=== PATIENT | female | born 1975 | race African-American/Black ===

== ENCOUNTER 2019-05-05 00:06 | Emergency (ER) | payer OTHER, SELFPAY ==
[~2019-05-05] VITALS: Ht 167.6 cm; Wt 88.5 kg
[~2019-05-05 00:06] MED LIST: NKM; NORCO 5-325 TA1 EACH ORAL
[2019-05-05 00:15] VITALS: BP 132/85
--- NOTE | 2019-05-05 00:20 | NUR ---
ED Nurse Note: patient walked in from home d/t neck pain 12/04. patient stated experiencing flu like symptoms for the last few days. patient aao x 4 and ambulatory. patient placed on tosser. no acute distress noted.
--- NOTE | 2019-05-05 00:21 | NUR ---
ED Nurse Note: ERMD at bedside
--- NOTE | 2019-05-05 00:27 | Emergency Room Report ---
History of Present Illness General Chief Complaint: Neck Pain Source: Patient Present Illness HPI Patient presents with complaints of general weakness low-grade fever Patient reports that she felt like she had flu symptoms for the past few days starting on Sunday Earlier today started having increased stiffness to her neck and this was concerning for her and came to the ER Denies any photophobia denies any chest pain or shortness of breath patient has a mild sore throat denies any change in her voice Denies any abdominal pain she feels that the discomfort is in the upper part of the neck bilaterally Allergies: Coded Allergies: No Known Allergies (Unverified , 03/08/12) Patient History Past Medical History: see triage record Now: No Reviewed Nursing Documentation: PMH: Agreed; PSxH: Agreed Nursing Documentation-PMH Past Medical History: No Stated History Review of Systems All Other Systems: negative except mentioned in HPI Physical Exam Vital Signs Date Time Temp Pulse Resp B/P (MAP) Pulse Ox O2 Delivery O2 Flow Rate FiO2 05/05/19 00:11 98.2 107 18 138/92 (107) 98 Room Air Sp02 EP Interpretation: reviewed, normal General Appearance: well appearing, no apparent distress Head: normocephalic, atraumatic Eyes: bilateral eye PERRL, bilateral eye EOMI ENT: hearing grossly normal, normal pharynx, TMs + canals normal, uvula midline Neck: full range of motion, supple, no meningismus - Patient is shaking her head up and down to answer yes and no and from side to side without any signs of meningismus reproduced she does subjectively feel, more spasming and stiffness bilaterally however, no bony tend Respiratory: lungs clear, normal breath sounds, no rhonchi, no respiratory distress, no retraction, no accessory muscle use Cardiovascular #1: normal peripheral pulses, regular rate, rhythm, no edema, no gallop, no JVD, no murmur Gastrointestinal: normal bowel sounds, non tender, soft, no mass, no organomegaly, non-distended, no guarding, no hernia, no pulsatile mass, no rebound Musculoskeletal: normal inspection Neurologic: motor strength/tone normal, 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, oriented x3 , sensory intact, responsive Psychiatric: mood/affect normal Skin: no rash Lymphatic: normal inspection, no adenopathy Medical Decision Making Diagnostic Impression: Primary Impression: Viral syndrome ER Course Given the patient's history and exam given the presentation multiple differentials are in consideration including but not limited to flulike symptoms , meningitis, Patient appears nonseptic and nontoxic clinical exam does not show findings consistent with acute meningitis Patient is provided with anti-inflammatory she is also outside of the 24-hour presentation for antiviral medication and will have initial conservative outpatient trial Last Vital Signs Date Time Temp Pulse Resp B/P (MAP) Pulse Ox O2 Delivery O2 Flow Rate FiO2 05/05/19 00:11 98.2 107 18 138/92 (107) 98 Room Air Status: improved Disposition: HOME, SELF-CARE Condition: Improved Scripts Ibuprofen* (MOTRIN*) 600 Mg Tablet 600 MG ORAL Q8H PRN for For Pain, #20 TAB 0 Refills Prov: Stepan Gracia DO 05/05/19 Additional Instructions: Patient is provided with the discharge instructions notified to follow up with primary doctor in the next 2-3 days otherwise return to the er with any worsening symptoms. Please note that this report is being documented using [employer] technology. This can lead to erroneous entry secondary to incorrect interpretation by the dictating instrument. Stepan Gracia DO May 05, 2019 00:27
[2019-05-05] MEDS ORDERED: IBUPROFEN600 MG ORAL (00:28)
[2019-05-05 00:42] VITALS: BP 135/85
--- NOTE | 2019-05-05 00:42 | NUR ---
ED Nurse Note: Patient cleared by ERMD for discharge. Patient given discharge instructions and prescriptions, verbalized understanding. Medical devices and ID band removed. Patient stable upon discharge.
== END 2019-05-05 00:42 | disposition home or self-care (01) ==
LOC: EMR 00:34
DX: B34.9 Viral infection, unspecified (principal)
CPT/HCPCS: 99282

== ENCOUNTER 2019-11-05 15:41 | Emergency (ER) | payer OTHER ==
[~2019-11-05] VITALS: Ht 167.6 cm; Wt 91.2 kg
[~2019-11-05 15:41] MED LIST changes: +IBUPROFEN600 MG ORAL
--- NOTE | 2019-11-05 16:15 | NUR ---
ED Nurse Note: PT. AAOX4. AMBULATORY. WALKED IN TO ER FROM HOME. PER PT. SHE TWISTED HER R ANKLE TODAY WHILE WALKING. R ANKLE IS SWOLLEN
--- NOTE | 2019-11-05 16:24 | Emergency Room Report ---
History of Present Illness General Chief Complaint: Lower Extremity Injury Source: Patient Present Illness HPI 44-year-old female with no symptom past medical history here complaining of right ankle pain that happened today after twisting it while while walking. Obvious swelling and bony tenderness noted on right distal fibula. Has not taken medication for symptom relief. Rated 10 out of 10 at this time. Denies any calf tenderness. Denies pain radiation, tingling and numbness. Has full range of motion of lower extremity. Denies any chest pain, shortness of breath , headache and dizziness,. Denies . 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 Patient History Past Medical History: see triage record Past Surgical History: none Pertinent Family History: none Last Menstrual Period: 10/24/19 Now: No Immunizations: UTD Reviewed Nursing Documentation: PMH: Agreed; PSxH: Agreed Nursing Documentation-PMH Past Medical History: No Stated History Review of Systems All Other Systems: negative except mentioned in HPI Physical Exam Vital Signs Date Time Temp Pulse Resp B/P (MAP) Pulse Ox O2 Delivery O2 Flow Rate FiO2 11/05/19 16:12 98.4 102 18 127/91 (103) 97 Room Air Sp02 EP Interpretation: reviewed, normal General Appearance: no apparent distress, alert, GCS 15, non-toxic Head: normocephalic, atraumatic Eyes: bilateral eye normal inspection, bilateral eye PERRL ENT: hearing grossly normal, normal pharynx, no angioedema, normal voice Neck: full range of motion, supple/symm/no masses Respiratory: chest non-tender, lungs clear, normal breath sounds, speaking full sentences Cardiovascular #1: regular rate, rhythm, no edema Gastrointestinal: normal bowel sounds, non tender, soft, non-distended, no guarding, no rebound Rectal: deferred Genitourinary: no CVA tenderness Musculoskeletal: back normal, normal range of motion, no calf tenderness, gait/ station normal, tender - Right distal fibula, swelling - Right ankle Neurologic: alert, motor strength/tone normal, oriented x3, sensory intact, responsive, speech normal Psychiatric: judgement/insight normal, memory normal, mood/affect normal, no suicidal/homicidal ideation Skin: no rash Lymphatic: no adenopathy Procedures Splinting Splinting : Consent: Verbal Location: Right ankle Splint: poserior short Pre-Proc Neuro Vasc Exam: normal Post-Proc Neuro Vasc Exam: normal Patient Tolerated: Well Complications: None Progress Crutches were provided Medical Decision Making LYLA Attestation All my diagnosis and treatment plans were reviewed ad discussed with my supervising physician Dr. Khan Diagnostic Impression: Primary Impression: Closed fracture of right distal fibula ER Course 44-year-old female with no symptom past medical history here complaining of right ankle pain that happened today after twisting it while while walking. Obvious swelling and bony tenderness noted on right distal fibula. Has not taken medication for symptom relief. Rated 10 out of 10 at this time. Denies any calf tenderness. Denies pain radiation, tingling and numbness. Has full range of motion of lower extremity. Denies any chest pain, shortness of breath , headache and dizziness,. Denies . Ddx considered but are not limited to: ankle sprain, ankle strain, ankle fracture, ankle contusion Vital signs: are WNL, pt. is afebrile H&PE are most consistent with: Closed fracture of right distal fibula ORDERS: ankle x-ray, [facility] INTERVENTIONS: Splint was applied and crutches provided DISCHARGE: At this time pt. is stable for d/c to home. Will provide printed patient care instructions, and any necessary prescriptions. Care plan and follow up instructions have been discussed with the patient prior to discharge. Patient to follow primary doctor, for referral to talent sourcing specialist, also gave contact information of orthopedic urgent care, take medication as directed , if worsening symptoms return to the emergency room Other X-Ray Diagnostic Results Other X-Ray Diagnostic Results : X-Ray ordered: Right ankle # of Views/Limited Vs Complete: 3 View EP Interpretation: Yes LYLA Xray: Interpretation reviewed, by supervising MD, and agrees with findings. Interpretation: other - Closed fracture of right distal fibula Impression: Other - Closed fracture of right distal fibula Electronically Signed by: Carolina Saldivar PA-C Last Vital Signs Date Time Temp Pulse Resp B/P (MAP) Pulse Ox O2 Delivery O2 Flow Rate FiO2 11/05/19 16:12 98.4 102 18 127/91 (103) 97 Room Air Disposition: HOME, SELF-CARE Condition: Stable Scripts Ibuprofen (Ibu) 800 Mg Tablet 800 MG PO TID, #30 TAB Prov: Carolina Batres 11/05/19 Methocarbamol* (ROBAXIN-500*) 500 Mg Tablet 500 MG ORAL TID PRN for For Pain, #15 TAB 0 Refills Prov: Carolina aBtres 11/05/19 Patient Instructions: Ankle Fracture Additional Instructions: Take medication as directed, follow-up with talent sourcing specialist, if worsening symptoms return to the emergency room Carolina Batres Nov 05, 2019 16:24
[2019-11-05] MEDS ORDERED: ROBAXIN-500MG ORAL (16:25)
[2019-11-05] MEDS ORDERED: IBU800 MG PO (16:25)
--- NOTE | 2019-11-05 16:46 | NUR ---
Per ER PA short leg posterior splint was applied ti pts right lower ext. Pts PMS was reassessed.
[2019-11-05 16:58] VITALS: BP 127/91
--- NOTE | 2019-11-05 16:58 | NUR ---
ER DISCHARGE NOTE: Patient is cleared to be discharged per ERMD, pt is aox4, on room air, with stable vital signs. pt was given dc and prescription instructions, pt was able to verbalize understanding, pt id band removed. pt is able to ambulate with steady gait. pt took all belongings.
--- NOTE | 2019-11-05 17:08 | Diagnostic Imaging Report ---
Indication: Pain, trauma Technique: 3 views of the right ankle Comparison: none Findings: There is a nondisplaced fracture of the distal fibula. No other fracture demonstrated. The joint spaces are preserved. The bony alignment is normal. Impression: Positive for nondisplaced distal fibular fracture
== END 2019-11-05 16:58 | disposition home or self-care (01) ==
LOC: EMR 16:00
DX: S82.401A Unspecified fracture of shaft of right fibula, initial encounter for closed fracture (principal); X50.1XXA Overexertion from prolonged static or awkward postures, initial encounter; Y92.9 Unspecified place or not applicable
CPT/HCPCS: 29515; 73610; Z7502; 99283